=== PATIENT | female | born 1965 | race Caucasian/White ===

== ENCOUNTER 2017-01-15 13:37 | Emergency (ER) | payer OTHER ==
[~2017-01-15] VITALS: Ht 162.6 cm; Wt 57.0 kg
[2017-01-15 13:44] VITALS: TEMP 36.7; Ht 162.6 cm; Wt 57.0 kg
[2017-01-15] MEDS ORDERED: CEPH500C2 PO (14:06)
--- NOTE | 2017-01-15 14:23 | EMERGENCY ROOM VISIT NOTE ---
History Report prepared by José: Vijay Chang Under the Supervision of: Dr. Nati Narayanan D.O. First contact with patient: 14:09 Chief Complaint: SKIN PROBLEM Stated Complaint: SKIN INFECTION SPREADING History of Present Illness The patient is a 51 year old female who presents to the Emergency Room with complaints of a worsening skin infection of the right shoulder for the past five days. The patient noticed a small red bump fives days ago, which has been spreading. The afflicted area is warm red and painful. The right shoulder itself is achy. The patient was gardening five days ago when she noticed the bump. She was seen by [facility] and diagnosed with cellulitis. She has had 7 doses of Cephalexin. She returned to [facility] today because the infection has not improved, and she was referred to the ED. The patient has felt cold for two days but has not recorded any fevers. She has never had a rash like this before and has no history of MRSA. She is not diabetic and is not immunocompromised. The patient has a lot of tick exposure but has never been diagnosed with Lyme. She was treated prophylactically with Doxycycline. Source of History: patient Onset: five days ago Position: other (global) Quality: other (skin infection) Timing: worsening Associated Symptoms: No fevers Review of Systems See HPI for pertinent positives & negatives. A total of 10 systems reviewed and were otherwise negative. Past Medical & Surgical Medical Problems: (1) Outcome of delivery, single liveborn Family History No pertinent family history Social History Smoking Status: Never Smoker Marital Status: Housing Status: lives with family Current/Historical Medications Scheduled Cephalexin Monohydrate (Keflex), 500 MG PO QID Doxycycline Monohydrate (Monodox), 100 MG PO BID Allergies Coded Allergies: No Known Allergies (Verified , 01/15/17) Physical Exam Vital Signs Date Time Temp Pulse Resp B/P Pulse Ox O2 Delivery O2 Flow Rate FiO2 01/15/17 17:20 72 18 114/76 99 Room Air 01/15/17 16:17 65 18 128/74 100 Room Air 01/15/17 13:44 36.7 92 16 139/87 98 Room Air Physical Exam GENERAL: alert, well appearing, well nourished, no distress, non-toxic EYE EXAM: normal conjunctiva, PERRL and EOM's grossly intact OROPHARYNX: no exudate, no erythema, lips, buccal mucosa, and tongue normal and mucous membranes are moist NECK: supple, no nuchal rigidity, no adenopathy, non-tender LUNGS: Clear to auscultation. Normal chest wall mechanics HEART: no murmurs, S1 normal and S2 normal ABDOMEN: abdomen soft, non-tender, normo-active bowel sounds, no masses, no rebound or guarding. BACK: Back is symmetrical on inspection and there is no deformity, no midline tenderness, no CVA tenderness. SKIN: Area of cellulitis to the right shoulder, has expanded outside previously drawn margins, mild streaking down the proximal right upper extremity. Patchy macular rash noted to bilateral forearms, no petechia, no vessels, no bullae, no sloughing, the rash extends on the back and top of right breast. UPPER EXTREMITIES: upper extremities are grossly normal. LOWER EXTREMITIES: No pitting edema. NEURO EXAM: Normal sensorium, cranial nerves II-XII grossly intact, normal speech, no gross weakness of arms, no gross weakness of legs. Gross sensation intact. Medical Decision & Procedures Laboratory Results 01/15/17 14:45 Red Blood Count 4.37, Mean Corpuscular Volume 93.4, Mean Corpuscular Hemoglobin 30.7, Mean Corpuscular Hemoglobin Concent 32.8, Mean Platelet Volume 9.9, Neutrophils (%) (Auto) 60.8, Lymphocytes (%) (Auto) 26.6, Monocytes (%) (Auto) 11.3, Eosinophils (%) (Auto) 0.9, Basophils (%) (Auto) 0.4, Neutrophils # (Auto ) 4.24, Lymphocytes # (Auto) 1.86, Monocytes # (Auto) 0.79, Eosinophils # (Auto ) 0.06, Basophils # (Auto) 0.03 01/15/17 14:45 Test 01/15/17 14:45 White Blood Count 6.98 K/uL (4.8-10.8) Red Blood Count 4.37 M/uL (4.2-5.4) Hemoglobin 13.4 g/dL (12.0-16.0) Hematocrit 40.8 % (37-47) Mean Corpuscular Volume 93.4 fL (80-100) Mean Corpuscular Hemoglobin 30.7 pg (25-34) Mean Corpuscular Hemoglobin Concent 32.8 g/dl (32-36) Platelet Count 305 K/uL (130-400) Mean Platelet Volume 9.9 fL (7.4-10.4) Neutrophils (%) (Auto) 60.8 % Lymphocytes (%) (Auto) 26.6 % Monocytes (%) (Auto) 11.3 % Eosinophils (%) (Auto) 0.9 % Basophils (%) (Auto) 0.4 % Neutrophils # (Auto) 4.24 K/uL (1.4-6.5) Lymphocytes # (Auto) 1.86 K/uL (1.2-3.4) Monocytes # (Auto) 0.79 K/uL (0.11-0.59) Eosinophils # (Auto) 0.06 K/uL (0-0.5) Basophils # (Auto) 0.03 K/uL (0-0.2) RDW Standard Deviation 43.2 fL (36.4-46.3) RDW Coefficient of Variation 12.6 % (11.5-14.5) Immature Granulocyte % (Auto) 0.0 % Immature Granulocyte # (Auto) 0.00 K/uL (0.00-0.02) Anion Gap 6.0 mmol/L (3-11) Est Creatinine Clear Calc Drug Dose 73.0 ml/min Estimated GFR () 102.2 Estimated GFR (Non- 88.2 BUN/Creatinine Ratio 12.6 (10-20) Calcium Level 9.9 mg/dl (8.5-10.1) Total Bilirubin 0.6 mg/dl (0.2-1) Aspartate Amino Transf (AST/SGOT) 14 U/L (15-37) Alanine Aminotransferase (ALT/SGPT) 25 U/L (12-78) Alkaline Phosphatase 66 U/L (45-117) Total Protein 8.8 gm/dl (6.4-8.2) Albumin 4.3 gm/dl (3.4-5.0) Globulin 4.5 gm/dl (2.5-4.0) Albumin/Globulin Ratio 1.0 (0.9-2) Lyme Disease IgG Antibody NEG (NEG) Lyme Disease IgM Antibody NEG (NEG) Laboratory results per my review. Medications Administered Medications (Trade) Dose Ordered Sig/Kat Route Start Time Stop Time Status Last Admin Dose Admin Doxycycline Hyclate (Vibramycin Cap) 100 mg ONE ONCE PO 01/15/17 15:00 01/15/17 15:01 DC 01/15/17 15:13 100 MG ED Course 1412: The patient was evaluated in room C7. A complete history and physical exam was performed. 1500: Vibramycin 100 mg PO. 1655: Reassessed the patient. Discussed the treatment plan with her. She verbalized understanding and agreement. The patient will be prepared for discharge. Medical Decision Differential diagnosis: Etiologies such as cellulitis, abscess, MRSA infection, DVT, necrotizing fasciitis, dermatitis, drug eruption, as well as others were entertained.. Patient 88 no Compro is not a diabetic and no history of MRSA. Patient with no systemic symptoms and well appearing despite complaint of cellulitis. Area of erythema does extend slightly beyond originally demarcated area, no streaking down the arm, no edema to the arm, no numbness or tingling. Discussed with patient all lab results, discussed changing antibiotics to cover for both MRSA as well as possible tickborne disease. Patient is previously not had any adverse reactions to doxycycline. Discussed with patient close follow-up with family doctor the beginning of the week, symptoms to watch and return for, possible side effects of doxycycline, she verbalized understanding all this was agreeable with plan. No evidence of bacteremia/sepsis, doubt upper extremity DVT, lymphangitis, abscess, rash not otherwise concerning for Valente Evan's or TEN. Impression Primary Impression: Cellulitis Scribe Attestation The scribe's documentation has been prepared under my direction and personally reviewed by me in its entirety. I confirm that the note above accurately reflects all work, treatment, procedures, and medical decision making performed by me. Departure Information Dispostion Home / Self-Care Prescriptions Doxycycline Monohydrate (Monodox) 100 Mg Cap 100 MG PO BID for 7 Days, #14 CAP Prov: Nati Narayanan, DO 01/15/17 Referrals Júnior Weller M.D.([facility]) (PCP) Forms HOME CARE DOCUMENTATION FORM, IMPORTANT VISIT INFORMATION, WORK / SCHOOL INSTRUCTIONS Patient Instructions My [facility] Additional Instructions Please stop taking the cephalexin and begin taking the doxycycline as prescribed. Please call and schedule appointment to follow-up with her family doctor the beginning of next week to have the area rechecked. If you develop any fevers or chills, vomiting, diarrhea, worsening body aches, increased pain, swelling of your arm, other discolorations of your arm, weakness or numbness and tingling in the arm, or you have any other new concerns, please return to the emergency room. Problem Qualifiers Primary Impression: Cellulitis Site of cellulitis: extremity Site of cellulitis of extremity: upper extremity Laterality: right Qualified Codes: L03.113 - Cellulitis of right upper limb
[2017-01-15 15:00] LABS: BASO % 0.4 %; BASO ABS # 0.03 K/uL (0-0.2); COMPLETE YES; EOS % 0.9 %; HEMATOCRIT 40.8 % (37-47); LYMPH % 26.6 %; LYMPH ABS # 1.86 K/uL (1.2-3.4); MEAN CELL VOLUME 93.4 fL (80-100); MEAN CORPUSCULAR HEMOGLOBIN 30.7 pg (25-34); MEAN CORPUSCULAR HGB CONC 32.8 g/dl (32-36); MEAN PLATELET VOLUME 9.9 fL (7.4-10.4); MONO % 11.3 %; NEUT % 60.8 %; PLATELET COUNT 305 K/uL (130-400); RED BLOOD COUNT 4.37 M/uL (4.2-5.4); WHITE BLOOD COUNT 6.98 K/uL (4.8-10.8)
[2017-01-15] MEDS ORDERED: DOXYCYCLINE HYCLATE 100 MG CAP PO ONE (15:00)
[2017-01-15 15:23] LABS: BUN/CREATININE RATIO 12.6 (10-20); CALCIUM 9.9 mg/dl (8.5-10.1); CREATININE 0.77 mg/dl (0.60-1.20); POTASSIUM 3.8 mmol/L (3.5-5.1)
[2017-01-15 15:51] LABS: LYME DISEASE AB IGG NEG (NEG); LYME DISEASE AB IGM NEG (NEG)
[2017-01-15] MEDS ORDERED: DOXY100C76 PO (17:13)
[2017-01-15 17:20] VITALS: BP 114/76; PULSE 72; O2SAT 99
== END 2017-01-15 17:31 | disposition home or self-care (01) ==
LOC: C.EDB 13:40 → C.EDC 17:31
DX: L03.113 Cellulitis of right upper limb (principal); R21 Rash and other nonspecific skin eruption